=== PATIENT | female | born 1990 | race Caucasian/White ===

== ENCOUNTER 2022-01-19 13:42 | Inpatient (IN) | payer MEDICAID ==
[~2022-01-19] VITALS: Ht 154.9 cm; Wt 76.2 kg
[2022-01-19] MEDS ORDERED: TERBUTALINE SULFATE 1 MG/ML VIAL SUBCUT ONE (14:45)
[2022-01-19 15:34] LABS: BASOPHILS # (AUTO) 0.1 K/uL (0.0-0.2); BASOPHILS % (AUTO) 1.6 % (0.0-2.0); EOSINOPHILS % (AUTO) 0.2 % (0.0-4.0); HEMATOCRIT 36.7 % (36-48); HEMOGLOBIN 12.7 g/dL (12.0-16.0); LYMPHOCYTES # (AUTO) 1.4 K/uL (1.0-5.5); MEAN CORPUSCULAR HEMOGLOBIN 31 pg (27-31); MEAN CORPUSCULAR HGB CONC 35 % (32-36); MEAN CORPUSCULAR VOLUME 89 fL (79.0-98.0); MONOCYTES # (AUTO) 0.5 K/uL (0.0-1.0); MONOCYTES % (AUTO) 5.8 % (1.7-9.3); NEUTROPHILS # (AUTO) 7.3 K/uL (1.8-7.7); NEUTROPHILS % (AUTO) 77.4 % (40.0-70.0); PLATELET COUNT (AUTO) 175 K/uL (130-430); RED BLOOD CELL COUNT(AUTO) 4.13 MIL/uL (4.2-6.2); RED CELL DISTRIBUTION WIDTH 13.7 % (9.0-15.0); WHITE BLOOD COUNT (AUTO) 9.4 K/uL (4.8-10.8)
[2022-01-19 16:29] VITALS: BP_SYST 122
[2022-01-19] MEDS ORDERED: DINOPROSTONE 10 MG SUPP VG ONE (16:45)
[2022-01-19] MEDS: LR 1,000 ML IV SCH ×2 (17:24→20:52)
[2022-01-20] MEDS: OXYTOCIN/0.9 % SODIUM CHLORIDE 1,000 ML IV SCH ×2 (00:18→00:40)
[2022-01-20] MEDS: LR 1,000 ML IV SCH ×3 (05:20→20:17)
[2022-01-20] MEDS: NALBUPHINE HCL 10 MG/ML AMP IVP PRN ×2 (15:12→19:26)
[2022-01-20] MEDS ORDERED: fentaNYL CITRATE/PF 100 MCG/2 ML AMP ONE (19:42)
[2022-01-20] MEDS ORDERED: ROPIVACAINE HCL/PF 0.2% 200 ML ONE (19:42)
[2022-01-20] MEDS ORDERED: FENT2mCg/mL-ROPIVA0.2%/NS EPID 200 ML EP SCH (21:00)
[2022-01-20] MEDS ORDERED: LR 500 ML IV ONE (21:00)
[2022-01-21] MEDS: LR 1,000 ML IV SCH ×2 (00:01→03:14)
[2022-01-21] MEDS ORDERED: OXYTOCIN 10 UNIT/ML VIAL IM ONE (03:15)
[2022-01-21] MEDS: OXYTOCIN/0.9 % SODIUM CHLORIDE 1,000 ML IV SCH (04:12)
[2022-01-21] MEDS ORDERED: DERMOPLAST SPRAY TP PRN (04:15)
[2022-01-21] MEDS ORDERED: OXYTOCIN/0.9 % SODIUM CHLORIDE 1,000 ML IV SCH (04:15)
[2022-01-21] MEDS ORDERED: OXYTOCIN/0.9 % SODIUM CHLORIDE 1,000 ML IV ONE (04:15)
[2022-01-21] MEDS ORDERED: LANOLIN 7 GM OINT. TP PRN (04:15)
[2022-01-21] MEDS ORDERED: ANUSOL 1 EA SUPP.RECT (PREPARATION H) RC PRN (04:15)
[2022-01-21] MEDS ORDERED: DIPH-TET-PERTUS Vaccine 0.5 ML VIAL (ADACEL) I.M. PRN (04:15)
[2022-01-21] MEDS ORDERED: WITCH HAZEL LEAF 1 MED.PAD MED.PAD TP PRN (04:15)
[2022-01-21] MEDS ORDERED: HYDROCORTISONE 0.5% CREAM 28.4 GM CREAM.GM. TP PRN (04:15)
[2022-01-21] MEDS: IBUPROFEN 600 MG TABLET PO SCH ×3 (06:05→17:43)
[2022-01-21] MEDS: DOCUSATE SODIUM 100 MG CAPSULE PO SCH (08:48)
[2022-01-21] MEDS ORDERED: OXYCODONE/ACETAMINOPHEN 5-325 TABLET PO PRN (17:45)
[2022-01-21] MEDS: OXYCODONE/ACETAMINOPHEN 5-325 TABLET PO PRN (17:54)
[2022-01-21 20:30] VITALS: BP_SYST 111
[2022-01-21] MEDS ORDERED: TEMAZEPAM 15 MG CAPSULE PO PRN (21:00)
[2022-01-21] MEDS ORDERED: SENNOSIDES/DOCUSATE SODIUM 1 TAB TABLET(SENOKOT-S) PO SCH (21:00)
[2022-01-22] MEDS: IBUPROFEN 600 MG TABLET PO SCH ×3 (00:24→11:59)
[2022-01-22] MEDS: OXYCODONE/ACETAMINOPHEN 5-325 TABLET PO PRN ×2 (00:26→08:32)
[2022-01-22 07:16] LABS: BASOPHILS % (AUTO) 0.2 % (0.0-2.0); EOSINOPHILS # (AUTO) 0.1 K/uL (0.0-0.4); EOSINOPHILS % (AUTO) 0.6 % (0.0-4.0); HEMATOCRIT 28.6 % (36-48); HEMOGLOBIN 9.8 g/dL (12.0-16.0); LYMPHOCYTES # (AUTO) 2.8 K/uL (1.0-5.5); LYMPHOCYTES % (AUTO) 21.2 % (20.5-51.5); MEAN CORPUSCULAR HEMOGLOBIN 31 pg (27-31); MEAN CORPUSCULAR HGB CONC 34 % (32-36); MEAN CORPUSCULAR VOLUME 90 fL (79.0-98.0); MONOCYTES # (AUTO) 0.9 K/uL (0.0-1.0); MONOCYTES % (AUTO) 6.4 % (1.7-9.3); NEUTROPHILS # (AUTO) 9.6 K/uL (1.8-7.7); NEUTROPHILS % (AUTO) 71.6 % (40.0-70.0); PLATELET COUNT (AUTO) 136 K/uL (130-430); RED BLOOD CELL COUNT(AUTO) 3.17 MIL/uL (4.2-6.2); RED CELL DISTRIBUTION WIDTH 13.9 % (9.0-15.0); WHITE BLOOD COUNT (AUTO) 13.4 K/uL (4.8-10.8)
[2022-01-22] MEDS: DOCUSATE SODIUM 100 MG CAPSULE PO SCH (08:32)
[2022-01-24 21:06] LABS: FTA-Ab (T PALLIDUM) Non Reactive (Non Reactive)
== END 2022-01-22 15:10 | disposition home or self-care (01) | DRG 560 ==
LOC: SPU 13:42
PROVIDERS: ADMIT Obstetrics & Gynecology; ATTEND Obstetrics & Gynecology
PROC: 10E0XZZ Delivery of Products of Conception, External Approach (ICD-10-PCS; principal; 2022-01-19)
PROC: 0W8NXZZ Division of Female Perineum, External Approach (ICD-10-PCS; 2022-01-19)
PROC: 3E0R3BZ Introduction of Anesthetic Agent into Spinal Canal, Percutaneous Approach (ICD-10-PCS; 2022-01-19)
PROC: 00HU33Z Insertion of Infusion Device into Spinal Canal, Percutaneous Approach (ICD-10-PCS; 2022-01-19)
DX: O80 Encounter for full-term uncomplicated delivery (principal); Z37.0 Single live birth; Z20.822 Contact with and (suspected) exposure to COVID-19; Z3A.39 39 weeks gestation of pregnancy
CPT/HCPCS: 36415; 81002; 85025; 86592; 86780; 86886; 86900; 86901; 94760; J2300; J2590; J3010